=== PATIENT | male | born 2000 | race Caucasian/White ===

== ENCOUNTER 2023-11-26 08:46 | Emergency (ER) | payer MEDICAID ==
[~2023-11-26] VITALS: Ht 172.7 cm; Wt 75.0 kg
[2023-11-26 08:48] VITALS: O2SAT 99
[2023-11-26 08:49] VITALS: TEMP 98.8; O2SAT 99
[2023-11-26 09:34] VITALS: BP 123/78; PULSE 76; RESP 18
[2023-11-26] MEDS: IBUPROFEN 400MG TABLET PO ONE (09:34)
== END 2023-11-26 10:20 | disposition home or self-care (01) ==
LOC: ER 08:46
DX: R07.89 Other chest pain (principal); Z88.2 Allergy status to sulfonamides; Z90.89 Acquired absence of other organs
CPT/HCPCS: 71045; 93005; 99283